=== PATIENT | male | born 1995 | race Caucasian/White ===

== ENCOUNTER 2022-11-25 09:07 | Emergency (ER) | payer OTHER | END 2022-11-25 12:08 | disposition home or self-care (01) | LOC: JD.ED 09:07 | DX: S09.90XA Unspecified injury of head, initial encounter (principal); S16.1XXA Strain of muscle, fascia and tendon at neck level, initial encounter; V49.9XXA Car occupant (driver) (passenger) injured in unspecified traffic accident, initial encounter | CPT/HCPCS: 70450; 70450-26; 72125; 72125-26; 99283; 99284 ==